=== PATIENT | male | born 1985 | race Two or more races ===

== ENCOUNTER 2017-01-04 09:16 | Emergency (ER) | payer SELFPAY ==
[2017-01-04 10:32] LABS: ABSOLUTE EOSINOPHILS # (AUTO) 0.3 10^3/uL (0.0-0.6); ABSOLUTE LYMPHOCYTES (AUTO) 2.3 10^3/uL (0.5-4.7); ABSOLUTE MONOCYTES (AUTO) 0.4 10^3/uL (0.1-1.4); ABSOLUTE NEUT (AUTO) 3.7 10^3/uL (1.7-8.2); BASOPHILS % (AUTO) 0.4 % (0-2); EOSINOPHILS % (AUTO) 3.8 % (0-6); HEMATOCRIT 41.6 % (37.9-51.0); HGB HCT DIFFERENCE 3.4; LYMPHOCYTES % (AUTO) 34.3 % (13-45); MEAN CORPUSCULAR HEMOGLOBIN 30.9 pg (27.0-33.4); MEAN CORPUSCULAR VOLUME 86 fl (80-97); MONOCYTES % (AUTO) 6.1 % (3-13); RED BLOOD COUNT 4.84 10^6/uL (4.35-5.55); RED CELL DISTRIBUTION WIDTH 13.1 % (11.5-14.0); SEGMENTED NEUTROPHILS % (AUTO) 55.4 % (42-78); WHITE BLOOD COUNT 6.7 10^3/uL (4.0-10.5)
[2017-01-04 10:34] LABS: APPEARANCE,URINE CLEAR; BILIRUBIN,URINE NEGATIVE (NEGATIVE); GLUCOSE, URINE NEGATIVE (NEGATIVE); KETONES,URINE NEGATIVE (NEGATIVE); LEUKOCYTE ESTERASE,URINE NEGATIVE (NEGATIVE); NITRITE,URINE NEGATIVE (NEGATIVE); PROTEIN,URINE NEGATIVE (NEGATIVE); URINE SPECIFIC GRAVITY 1.017; UROBILINOGEN,URINE NEGATIVE mg/dL (<2.0)
[2017-01-04 10:53] LABS: ALANINE AMINOTRANSFERASE 116 U/L (21-72); ALBUMIN 4.6 g/dL (3.5-5.0); ALKALINE PHOSPHATASE 165 U/L (38-126); ANION GAP 13 (5-19); ASPARTATE AMINO TRANSFERASE 60 U/L (17-59); BILIRUBIN,DIRECT 0.4 mg/dL (0.0-0.4); BILIRUBIN,TOTAL 0.5 mg/dL (0.2-1.3); BLOOD UREA NITROGEN 15 mg/dL (7-20); CALCIUM 9.9 mg/dL (8.4-10.2); CARBON DIOXIDE 26 mmol/L (22-30); CHLORIDE 103 mmol/L (98-107); CREATININE RESULT 0.77 mg/dL (0.52-1.25); GLUCOSE 119 mg/dL (75-110); POTASSIUM 4.1 mmol/L (3.6-5.0); SODIUM 142.1 mmol/L (137-145); TOTAL PROTEIN 8.1 g/dL (6.3-8.2)
--- NOTE | 2017-01-04 12:32 | RADIOLOGY REPORT (SQ) ---
EXAM DESCRIPTION: U/S ABDOMEN LIMITED W/O DOP COMPLETED DATE/TIME: 01/04/2017 12:03 pm REASON FOR STUDY: ruq pain COMPARISON: None. TECHNIQUE: Dynamic and static grayscale images acquired of the abdomen and recorded on PACS. Additio nal selected color Doppler and spectral images recorded. LIMITATIONS: None. FINDINGS: PANCREAS: No masses. Visualized pancreatic duct normal caliber. LIVER: Fatty infiltration. No masses. LIVER VASCULATURE: Normal directional flow of the main portal vein and hepatic veins. GALLBLADDER: No stones. Borderline thickened wall at 2.8 mm. . No pericholecystic fluid. ULTRASOUND-DETECTED ACOSTA'S SIGN: Negative. INTRAHEPATIC DUCTS AND COMMON DUCT: CBD and intrahepatic ducts normal caliber. No filling defects. INFERIOR VENA CAVA: Normal flow. AORTA: No aneurysm. RIGHT KIDNEY: Normal size. Normal echogenicity. No solid or suspicious masses. No hydronephrosis. No calcifications. PERITONEAL AND RIGHT PLEURAL SPACE: No ascites or effusions. OTHER: No other significant findings. IMPRESSION: Fatty infiltration of the liver. No masses. No gallstones. TECHNICAL DOCUMENTATION: JOB ID: [id number] [employer]- All Rights Reserved
--- NOTE | 2017-01-04 12:41 | ER Document Report ---
ED General - General Chief Complaint: Flank Pain Stated Complaint: FLANK PAIN Time Seen by Provider: 01/04/17 09:49 Mode of Arrival: Ambulatory Information source: Patient Notes: Patient presents with right flank pain. He states he has had it for 3-4 days. He says he was told in [place] that he has kidney problems and was concerned that this may be a problem with his kidney. He states he did lift something heavy approximately 24 hours before the pain started. He states the pain is constant and located in the right flank. It is worse with movement and better with rest. It does not radiate. It is sharp and moderate in intensity. No vomiting or diarrhea. No fevers. No rashes. No problems with urination. TRAVEL OUTSIDE OF THE [place] IN LAST 30 DAYS: No Past Medical History - Social History Smoking Status: Never Smoker Chew tobacco use (# tins/day): No Frequency of alcohol use: Occasional Drug Abuse: None Family History: Reviewed & Not Pertinent Patient has suicidal ideation: No Patient has homicidal ideation: No Renal/ Medical History: Denies: Hx Peritoneal Dialysis Review of Systems - Review of Systems Constitutional: denies: Chills, Fever Cardiovascular: denies: Chest pain, Dyspnea Respiratory: denies: Cough, Short of breath -: Yes All other systems reviewed and negative Physical Exam - Vital signs Vitals: Temp Pulse Resp Pulse Ox 98.1 F 64 16 98 01/04/17 09:31 01/04/17 09:31 01/04/17 09:31 01/04/17 09:31 Interpretation: Normal - General General appearance: Appears well, Alert - HEENT Head: Normocephalic, Atraumatic Eyes: Normal Pupils: PERRL - Respiratory Respiratory status: No respiratory distress Chest status: Nontender Breath sounds: Normal Chest palpation: Normal - Cardiovascular Rhythm: Regular Heart sounds: Normal auscultation Murmur: No - Abdominal Inspection: Normal Distension: No distension Bowel sounds: Normal Tenderness: Nontender Organomegaly: No organomegaly - Back Back: Other - Patient has bilateral paraspinal tenderness in the lumbar area. No evidence of spasm or other significant abnormality on inspection. - Extremities General upper extremity: Normal inspection, Nontender, Normal color, Normal ROM , Normal temperature General lower extremity: Normal inspection, Nontender, Normal color, Normal ROM , Normal temperature, Normal weight bearing. No: Jeff's sign - Neurological Neuro grossly intact: Yes Cognition: Normal Orientation: AAOx4 Sullivan Coma Scale Eye Opening: Spontaneous Sullivan Coma Scale Verbal: Oriented Navdeep Coma Scale Motor: Obeys Commands Navdeep Coma Scale Total: 15 Speech: Normal Motor strength normal: LUE, RUE, LLE, RLE Sensory: Normal - Psychological Associated symptoms: Normal affect, Normal mood - Skin Skin Temperature: Warm Skin Moisture: Dry Skin Color: Normal Course - Vital Signs Vital signs: Temp Pulse Resp BP Pulse Ox 98.1 F 64 16 119/66 98 01/04/17 09:31 01/04/17 09:31 01/04/17 09:31 01/04/17 09:41 01/04/17 09:31 - Laboratory Result Diagrams: 01/04/17 10:12 01/04/17 10:12 Laboratory results interpreted by me: 01/04/17 10:12 Glucose 119 H AST 60 H ALT 116 H Alkaline Phosphatase 165 H - Diagnostic Test Radiology reviewed: Image reviewed, Reports reviewed - Ultrasound of the right upper quadrant shows fatty infiltration of the liver. Discharge - Discharge Clinical Impression: Acute lumbar myofascial strain Condition: Stable Disposition: HOME, SELF-CARE Instructions: Low Back Pain ([facility]) Additional Instructions: You appear to have pain in her lower back from a muscle strain. You may take Motrin [id number] in addition to the pain medicine you were prescribed. This pain should resolve over the next couple of days. If your pain does not resolve please return to your primary care physician or the emergency department for further evaluation. Your liver enzymes were mildly elevated and the ultrasound shows fat infiltration of your liver. This needs to be followed up by your primary care physician. If you do not have a primary care physician please call Dr. Baum. Prescriptions: Hydrocodone/Acetaminophen [[place] 5-325 mg Tablet] 1 tab PO Q6 PRN #12 tablet PRN Reason: Forms: Return to Work Referrals: KASSIDY BAUM MD [COMMUNITY BASED STAFF] - Follow up in 1 week
[2017-01-04] MEDS ORDERED: OXYCODONE-ACETAMINOPHEN 5-325 MG TABLET PO ONE (13:13)
[2017-01-04 14:10] VITALS: BP 105/67
== END 2017-01-04 13:20 | disposition home or self-care (01) ==
LOC: ER 09:16
DX: S39.012A Strain of muscle, fascia and tendon of lower back, initial encounter (principal); R10.9 Unspecified abdominal pain; X58.XXXA Exposure to other specified factors, initial encounter
CPT/HCPCS: 36415; 76705; 80053; 81001; 85025; 99284

== ENCOUNTER 2017-05-19 19:18 | Emergency (ER) | payer SELFPAY ==
[2017-05-19 19:31] VITALS: BP 132/76
[2017-05-19] MEDS ORDERED: LIDOCAINE 1%/EPINEPHRINE INJ 20 ML VIAL INJ ONE (20:00)
--- NOTE | 2017-05-19 20:00 | ER Document Report ---
ED Hand/Wrist Injury - General Chief Complaint: Hand Injury Stated Complaint: HAND INJURY Time Seen by Provider: 05/19/17 19:46 Notes: The patient is a 32-year-old male presents with a splinter in the left palm of his hand. His tetanus is up-to-date. Denies heavy bleeding, numbness or tingling. TRAVEL OUTSIDE OF THE [place] IN LAST 30 DAYS: No - Related Data Allergies/Adverse Reactions: No Known Allergies Allergy (Unverified 05/19/17 19:21) Past Medical History - General Information source: Patient - Social History Smoking Status: Unknown if Ever Smoked Family History: Reviewed & Not Pertinent Renal/ Medical History: Denies: Hx Peritoneal Dialysis Review of Systems - Review of Systems Constitutional: denies: Chills, Fever Respiratory: denies: Cough, Short of breath Musculoskeletal: denies: Joint swelling, Muscle pain Neurological/Psychological: denies: Numbness, Tingling Physical Exam - Vital signs Vitals: Temp Pulse Resp BP Pulse Ox 98.8 F 57 L 16 132/76 H 96 05/19/17 19:29 05/19/17 19:29 05/19/17 19:29 05/19/17 19:29 05/19/17 19:29 - Notes Notes: PHYSICAL EXAMINATION: GENERAL: Well-appearing, well-nourished and in no acute distress. HEAD: Atraumatic, normocephalic. EYES: Pupils equal round and reactive to light, extraocular movements intact, sclera anicteric, conjunctiva are normal. ENT: nares patent, oropharynx clear without exudates. Moist mucous membranes. EXTREMITIES: Splinter in palm of left hand, normal range of motion, no pitting or edema. No cyanosis. NEUROLOGICAL: Cranial nerves grossly intact. Normal speech, normal gait. Normal sensory and motor exams. Course - Re-evaluation Re-evalutation: 3 cm wooden splinter successfully removed and patient's hand extensively cleaned with soap and water with bacitracin placed. Given return precautions and he understands. PROCEDURE NOTE: 05/19/17 20:14 After 2 mL 1% Lidocaine w/ Epi was infiltrated around the splinter, the splinter was removed successfully using a Elise clamp. - Vital Signs Vital signs: Temp Pulse Resp BP Pulse Ox 98.8 F 57 L 16 132/76 H 96 05/19/17 19:29 05/19/17 19:29 05/19/17 19:29 05/19/17 19:29 05/19/17 19:29 Discharge - Discharge Clinical Impression: Splinter of hand Qualifiers: Encounter type: initial encounter Laterality: left Qualified Code(s): S60.552A - Superficial foreign body of left hand, initial encounter Condition: Stable Disposition: HOME, SELF-CARE Additional Instructions: Use bacitracin and keep the hand clean. Forms: Elevated Blood Pressure Referrals: WILEY HANDY DO [ACTIVE STAFF] - Follow up as needed
== END 2017-05-19 20:20 | disposition home or self-care (01) ==
LOC: ER 19:18
DX: S60.552A Superficial foreign body of left hand, initial encounter (principal); X58.XXXA Exposure to other specified factors, initial encounter
CPT/HCPCS: 99283; J3490